=== PATIENT | male | born 1980 | race Caucasian/White ===

== ENCOUNTER 2021-08-15 10:17 | Emergency (ER) | payer OTHER, SELFPAY ==
[2021-08-15 10:37] VITALS: BP 140/87; PULSE 94; RESP 18; TEMP 36.3; O2SAT 98
--- NOTE | 2021-08-15 10:53 | ED.URI ---
HPI - URI/Sore Throat General Chief Complaint: Upper Respiratory Infection Stated Complaint: Sinus,Fatigue,Cough,Headache Source: patient and RN notes reviewed Limitations: no limitations History of Present Illness HPI Narrative: The vaccinated patient, a non-smoker/nondrinker followed by ENT, presents with sinus discomfort. Patient has a week and a half worsening of multi-month history of sinus discomfort, for which he saw his EENT and was given initially steroids and doxycycline through mid July. No fever, cough; loss of taste/smell, CP, vomiting/diarrhea, S OB; he has alternating clear and purulent nasal discharge and maxillary/upper molar discomfort. Symptoms are mild unrelieved with current Zyrtec, Astelin treatment; he has a CT scan pending. Discussed plan to provide different antibiotic, resume mast cell stabilizers like Singulair, and substitute/different steroid nasal spray. Related Data Home Medications Medication Instructions Recorded Confirmed azelastine [Astelin] 137 mcg INTRANASAL Q12H 08/15/21 08/15/21 cetirizine [Zyrtec] 10 mg PO DAILY 08/15/21 08/15/21 escitalopram oxalate [Lexapro] 10 mg PO DAILY 08/15/21 08/15/21 fluticasone propionate [Flonase] 1 spray INTRANASAL DAILY 08/15/21 08/15/21 testosterone [Fortesta] 2 pump TRANSDERMAL QAM 08/15/21 08/15/21 Allergies Allergy/AdvReac Type Severity Reaction Status Date / Time No Known Allergies Allergy Verified 08/15/21 10:50 Review of Systems Review of Systems: General/Constitutional: No weight loss,fever Eyes: N0: Redness,discharge Ears/Nose/Throat: No: Epistaxis,ear discharge Respiratory: Denies: Hemoptysis Gastrointestinal: No Vomiting, Bleeding-rectal Skin: No Lumps, eruption Neurologic: No Focal Weakness,Sz Hematologic: Denies: Petechiae/Purpura Psychiatric: No: Suicida ideationl All Other Systems: Reviewed and Negative PMFSH Comments At time of signature, agree with nursing past medical, surgical, social and family history. There is no relevant family history pertinent to the presenting complaint Exam Narrative: General Appearance: Well appearing, Well nourished EYE: PERRLA, Conjunctiva clear, with allergic shiners infraorbitally Ears: Auditory canal normal, TM normal Nose: Rhinorrhea, Mucousal erythema Mouth/Throat: MM moist, Uvula midline, Pharyngeal erythema w/o exudat Neck: Supple, No adenopathy Respiratory: No respiratory distress, Breath sounds equal, Clear to auscultation Cardiovascular: RRR, No JVD Musculoskeletal: Non tender, Normal strength Skin: Warm, Dry Neurological: A&O x3, CN II-XII intact Psychiatric: Normal mood, Normal affect Course Vital Signs Vital signs: Vital Signs Temperature 97.4 F L 08/15/21 10:37 Pulse Rate 94 08/15/21 10:37 Respiratory Rate 18 08/15/21 10:37 Blood Pressure 140/87 08/15/21 10:37 Pulse Oximetry 98 08/15/21 10:37 Temperature 97.4 F L 08/15/21 10:37 Pulse Rate 94 08/15/21 10:37 Respiratory Rate 18 08/15/21 10:37 Blood Pressure 140/87 08/15/21 10:37 Pulse Oximetry 98 08/15/21 10:37 Discharge Plan Discharge Clinical Impression: Sinus headache Patient Disposition: Home, Self-Care Condition: Stable Instructions: Antibiotic Form, Rhinosinusitis (DC) Additional Instructions: Resume your Singulair; see ENT and CT scan as scheduled No need to take Flonase with Nasacort Prescriptions: New cefuroxime axetil 500 mg tablet 500 mg PO Q12H Qty: 20 RF: 0 ipratropium bromide 42 mcg (0.06 %) spray,non-aerosol 2 spray intranasal QID Qty: 15 RF: 1 triamcinolone acetonide [Nasacort] 55 mcg aerosol,spray 2 spray intranasal DAILY Qty: 16.9 RF: 2 No Action cetirizine [Zyrtec] 10 mg Tablet 10 mg PO DAILY RF: 0 azelastine [Astelin] 137 mcg (0.1 %) Aerosol,[place] 137 mcg INTRANASAL Q12H RF: 0 fluticasone propionate [Flonase] 50 mcg/actuation [place],Suspension 1 spray INTRANASAL DAILY RF: 0 escitalopram
[2021-08-16 02:32] LABS: SARS-CoV-2 RNA PCR Negative
== END 2021-08-15 11:04 | disposition home or self-care (01) ==
PROVIDERS: Emergency Provider Emergency Medicine
DX: H51.9 Unspecified disorder of binocular movement (principal); Z20.822 Contact with and (suspected) exposure to COVID-19; F41.9 Anxiety disorder, unspecified; F32.A Depression, unspecified
CPT/HCPCS: 99203; C9803; G0463; U0003; U0005